=== PATIENT | female | born 1975 ===

== ENCOUNTER 2021-09-04 09:00 | Inpatient (IN) | payer OTHER ==
[~2021-09-04] VITALS: Ht 157.5 cm; Wt 88.9 kg
[~2021-09-04 09:00] MED LIST: PRILOSEC20 MG PO; ZANTAC300 MG PO
[2021-09-04] MEDS ORDERED: SYNTHROID50 MCG PO (10:12)
== END 2021-09-12 11:17 | disposition home or self-care (01) | DRG 743 ==
LOC: O/R 09-10 05:27 → OB/GYN 09-10 05:27 → SURH 09-10 07:00 → OB/GYN 09-10 13:49
PROVIDERS: ADMIT Obstetrics & Gynecology; ATTEND Obstetrics & Gynecology
PROC: 0DNW0ZZ Release Peritoneum, Open Approach (ICD-10-PCS; 2021-09-10)
PROC: 0UB90ZZ Excision of Uterus, Open Approach (ICD-10-PCS; principal; 2021-09-10 07:00)
DX: D25.9 Leiomyoma of uterus, unspecified (principal); N73.6 Female pelvic peritoneal adhesions (postinfective); Z20.822 Contact with and (suspected) exposure to COVID-19